=== PATIENT | male | born 1975 | race Hispanic/Latino ===

== ENCOUNTER 2017-02-03 02:30 | Emergency (ER) | payer OTHER ==
[2017-02-03 05:18] LABS: Basophils % (Auto) 0.3 % (0.0-1.8); Hematocrit 41.5 % (35.5-45.6); Hemoglobin 14.3 gm/dl (11.8-15.2); Mean Corpuscular HGB Conc 35 % (32-34); Mean Corpuscular Hemoglobin 30 pg (28-32); Mean Corpuscular Volume 87 fl (84-94); Platelet Count 249 K/mm3 (140-440); Red Blood Count 4.77 M/mm3 (3.65-5.03); Red Cell Distribution Width 13.1 % (13.2-15.2); White Blood Count 10.9 K/mm3 (4.5-11.0)
[2017-02-03 05:35] LABS: Alanine Aminotransferase 38 units/L (7-56); Albumin 4.8 g/dL (3.9-5); Alkaline Phosphatase 69 units/L (35-129); Anion Gap 18 mmol/L; BUN/Creatinine Ratio 15.71; Blood Urea Nitrogen 11 mg/dL (9-20); Calcium 9.5 mg/dL (8.4-10.2); Carbon Dioxide 26 mmol/L (22-30); Chloride 99.7 mmol/L (98-107); Glucose 113 mg/dL (75-100); Lipase 20 units/L (13-60); Potassium 4.9 mmol/L (3.6-5.0); Sodium 139 mmol/L (137-145); Total Protein 7.2 g/dL (6.3-8.2)
[2017-02-03 05:52] LABS: Bilirubin,Urine NEG (Negative); Blood,Urine MOD (Negative); Ketones,Urine NEG (Negative); Leukocyte Esterase,Urine NEG (Negative); Mucus,Urine FEW /HPF; Nitrite,Urine NEG (Negative); Protein,Urine <15 mg/dL mg/dL (Negative); Urobilinogen,Urine < 2.0 mg/dL (<2.0)
--- NOTE | 2017-02-03 10:06 | Emergency Department Report ---
Entered by TANNER MERCER, acting as scribe for BRIDGETTE KELLY PA. Chief Complaint: Abdominal Pain Stated Complaint: ABD PAIN THREE DAYS Time Seen by Provider: 02/03/17 09:54 - HPI History of Present Illness: Pt c/o generalized, 8/10, abdominal pain for 5 days. Describes pain as pressure and sharp in quality. Reports 5 emesis episodes last night. Notes history of similar abdominal pain. Denies diarrhea, fever, and chills. Notes that he still has his appendix and gallbladder is still in place. Denies EtOH consumption. Patient takes methadone for chronic back pain. Blood pressure is elevated at 174/115 - ROS Review of Systems: All system are negative unless stated in HPI above. - Exam Vital Signs: Vital Signs 02/03/17 04:16 Temperature 98.0 F Pulse Rate 54 L Respiratory 18 Rate Blood Pressure 174/115 O2 Sat by Pulse 99 Oximetry Physical Exam: General: well nourished, well developed, 41 year old male in no acute distress and nontoxic in appearance Abdomen: Soft normal bowel sounds in all quadrants. No guarding and no rebound. Periumbilical tenderness. Lungs: Clear to auscultation bilaterally, no rhonchi, wheezes, or rales. Normal work of breathing. No use of accessory muscles Cardiovascular: S1-S2, regular rate, regular rhythm. No murmurs. Blood pressure is elevated and asymptomatic. MSE screening note: Focused history and physical exam performed. Due to findings the following was ordered:see mdm See above ED Medical Decision Making - Lab Data Result diagrams: 02/03/17 04:44 02/03/17 04:44 Lab Results 02/03/17 02/03/17 02/03/17 Range/Units 04:44 04:44 05:27 WBC 10.9 (4.5-11.0) K/mm3 RBC 4.77 (3.65-5.03) M/mm3 Hgb 14.3 (11.8-15.2) gm/dl Hct 41.5 (35.5-45.6) % MCV 87 (84-94) fl MCH 30 (28-32) pg MCHC 35 H (32-34) % RDW 13.1 L (13.2-15.2) % Plt Count 249 (140-440) K/mm3 Lymph % (Auto) 10.5 L (13.4-35.0) % [place] % (Auto) 4.1 (0.0-7.3) % Eos % (Auto) 2.0 (0.0-4.3) % Baso % (Auto) 0.3 (0.0-1.8) % Lymph # 1.1 L (1.2-5.4) K/mm3 [place] # 0.4 (0.0-0.8) K/mm3 Eos # 0.2 (0.0-0.4) K/mm3 Baso # 0.0 (0.0-0.1) K/mm3 Seg Neutrophils % 83.1 H (40.0-70.0) % Seg Neutrophils # 9.1 H (1.8-7.7) K/mm3 Sodium 139 (137-145) mmol/L Potassium 4.9 (3.6-5.0) mmol/L Chloride 99.7 (98-107) mmol/L Carbon Dioxide 26 (22-30) mmol/L Anion Gap 18 mmol/L BUN 11 (9-20) mg/dL Creatinine 0.7 L (0.8-1.5) mg/dL Estimated GFR > 60 ml/min BUN/Creatinine Ratio 15.71 % Glucose 113 H (75-100) mg/dL Calcium 9.5 (8.4-10.2) mg/dL Total Bilirubin 0.30 (0.1-1.2) mg/dL AST 28 (5-40) units/L ALT 38 (7-56) units/L Alkaline Phosphatase 69 (35-129) units/L Total Protein 7.2 (6.3-8.2) g/dL Albumin 4.8 (3.9-5) g/dL Albumin/Globulin Ratio 2.0 % Lipase 20 (13-60) units/L Urine Color Yellow (Yellow) Urine Turbidity Clear (Clear) Urine pH 5.0 (5.0-7.0) Ur Specific [place] 1.018 (1.003-1.030) Urine Protein <15 mg/dl (Negative) mg/dL Urine Glucose (UA) Neg (Negative) mg/dL Urine Ketones Neg (Negative) mg/dL Urine Blood Mod (Negative) Urine Nitrite Neg (Negative) Urine Bilirubin Neg (Negative) Urine Urobilinogen < 2.0 (<2.0) mg/dL Ur Leukocyte Esterase Neg (Negative) Urine WBC (Auto) 1.0 (0.0-6.0) /HPF Urine RBC (Auto) 3.0 (0.0-6.0) /HPF Urine Mucus Few /HPF - Medical Decision Making MDM: Triage area Patient screened by provider in Patient Abdominal pain with episodic vomiting. Elevated blood pressure reading Plan: Abdominal protocol initiated and awaiting to go to [place] ED to be seen by Melanie Pressure elevated at 174/115: We'll give clonidine 0.2 mg ED Disposition for MSE Condition: Stable Referrals: PRIMARY CARE,MD [Primary Care Provider] - 3-5 Days This documentation as recorded by the RUSLAN moss JASMINE,accurately reflects the service I personally performed and the decisions made by ,BRIDGETTE KELLY PA.
[2017-02-03] MEDS ORDERED: CATAPRES ONE (10:18)
[2017-02-03] MEDS ORDERED: NACL 0.9% 1000 ML 1,000 ML IV ONE (11:50)
[2017-02-03] MEDS ORDERED: CARAFATE PO ONE (11:50)
[2017-02-03] MEDS ORDERED: PEPCID IV ONE (11:50)
[2017-02-03] MEDS ORDERED: BENTYL IM ONE (11:50)
[2017-02-03] MEDS ORDERED: ZOFRAN IV ONE (11:51)
[2017-02-03] MEDS ORDERED: NACL ONE (12:22)
[2017-02-03 13:41] VITALS: BP 118/68
--- NOTE | 2017-02-03 14:02 | Cat Scan Report ---
CT ABDOMEN AND PELVIS WITH CONTRAST INDICATION: Abdominal pain. COMPARISON: None similar at this institution. FINDINGS: Abdomen and pelvis CT performed following intravenous administration of 100 cc of Omnipaque 300. LUNG BASES: Right hemidiaphragm mildly elevated. ABDOMEN: Diffuse fatty hepatic infiltration with some pericholecystic sparing. Right hepatic lobe approximately 21 cm in midclavicular length. Few air containing noncalcified gallstones towards the fundus. Otherwise unremarkable liver, spleen, pancreas, adrenals, aorta, IVC and kidneys. No ascites or significant adenopathy. Nonopacified GI tract evaluation limited, though grossly nonobstructive. Normal appendix. Colonic stool, most along ascending colon/possible constipation. PELVIS: Mild rectosigmoid stool. Urinary bladder, seminal vesicles and prostate within normal limits. No free fluid or significant adenopathy. Mild lower thoracic spine degenerative changes, including few endplate irregularities/Schmorl's nodes. CONCLUSION: Cholelithiasis, fatty enlarged liver and few other incidental findings, as above. Please correlate. Thank you for the opportunity to participate in this patient's care.
--- NOTE | 2017-02-03 14:48 | Emergency Department Report ---
ED Abdominal Pain HPI - General Chief Complaint: Abdominal Pain Stated Complaint: ABD PAIN THREE DAYS Time Seen by Provider: 02/03/17 11:43 Source: patient, RN notes reviewed Mode of arrival: Ambulatory Limitations: No Limitations - History of Present Illness Initial Comments: This is a 41-year-old male. He is previously unknown to me. The patient has a past medical history of hypertension and has chronic pain for which she sees a pain specialist. The patient presents to the ER complaining of abdominal pain which has been present since Friday. The pain has been present for at least 5 days. The pain is achy and diffuse. It does not radiate anywhere. There is no chest pain or shortness of breath. There is no testicular pain. There is no dysuria. He reports a few episodes of nonbloody, nonbilious emesis. There is no leg pain. There is no leg swelling. No recent trips greater than 4 hours. No recent hospital admissions. The pain is all over, and increases with palpation and decreases with rest. The patient reports that his area of maximal pain intensity is in the periumbilical and epigastric region. MD Complaint: abdominal pain -: Gradual Location: diffuse Migration to: no migration Severity scale (0 -10): 0 Quality: cramping Consistency: intermittent Improves With: rest Worsens With: movement Associated Symptoms: nausea, vomiting - Related Data Previous Rx's Medication Instructions Recorded Last Taken Type Dicyclomine [Bentyl] 10 mg PO QID PRN #20 capsule 02/03/17 Unknown Rx Famotidine [Pepcid] 20 mg PO QDAY #30 tablet 02/03/17 Unknown Rx Ondansetron [Zofran Odt] 4 mg PO QID PRN #20 tab.rapdis 02/03/17 Unknown Rx Sucralfate [Carafate] 1 gm PO Q6HR #120 udc 02/03/17 Unknown Rx Allergies Allergy/AdvReac Type Severity Reaction Status Date / Time No Known Allergies Allergy Verified 02/03/17 10:20 ED Review of Systems ROS: Stated complaint: ABD PAIN THREE DAYS Other details as noted in HPI ED Past Medical Hx - Past Medical History Previous Medical History?: Yes Hx Hypertension: Yes Additional medical history: chronic back pain, takes methadone - Social History Smoking Status: Current Every Day Smoker - Medications Home Medications: Home Medications Medication Instructions Recorded Confirmed Last Taken Type Dicyclomine [Bentyl] 10 mg PO QID PRN #20 capsule 02/03/17 Unknown Rx Famotidine [Pepcid] 20 mg PO QDAY #30 tablet 02/03/17 Unknown Rx Ondansetron [Zofran Odt] 4 mg PO QID PRN #20 tab.rapdis 02/03/17 Unknown Rx Sucralfate [Carafate] 1 gm PO Q6HR #120 udc 02/03/17 Unknown Rx ED Physical Exam - General Limitations: No Limitations General appearance: alert, in no apparent distress - Head Head exam: Present: atraumatic, normocephalic - Eye Eye exam: Present: normal appearance, EOMI. Absent: nystagmus - ENT ENT exam: Present: normal exam, normal orophraynx, mucous membranes moist, normal external ear exam - Neck Neck exam: Present: normal inspection, full ROM. Absent: tenderness, meningismus - Respiratory Respiratory exam: Present: normal lung sounds bilaterally. Absent: respiratory distress, wheezes, rales, rhonchi, stridor, chest wall tenderness, accessory muscle use, decreased breath sounds, prolonged expiratory - Cardiovascular Cardiovascular Exam: Present: normal rhythm, bradycardia, normal heart sounds. Absent: systolic murmur, diastolic murmur, rubs, gallop - GI/Abdominal GI/Abdominal exam: Present: soft, normal bowel sounds, other (there is no right lower quadrant tenderness. There is no right upper quadrant tenderness). Absent: distended, tenderness, guarding, rebound, rigid, hyperactive bowel sounds, hypoactive bowel sounds, organomegaly, mass, bruit, pulsatile mass, hernia - Rectal Rectal exam: Present: deferred - Extremities Exam Extremities exam: Present: normal inspection, full ROM, normal capillary refill. Absent: pedal edema, joint swelling, calf tenderness - Back Exam Back exam: Present: normal inspection, full ROM. Absent: tenderness, CVA tenderness (R), CVA tenderness (L), muscle spasm, paraspinal tenderness, vertebral tenderness - Neurological Exam Neurological exam: Present: alert, oriented X3, normal gait, other (Extraocular movements intact. Tongue midline. No facial droop. Facial sensation intact to light touch in the V1, V2, V3 distribution bilaterally. 5 and 5 strength in 4 extremities.. Sensation is intact to light touch in 4 extremities.). Absent : motor sensory deficit - Psychiatric Psychiatric exam: Present: normal affect, normal mood - Skin Skin exam: Present: warm, dry, intact, normal color. Absent: rash ED Course Vital Signs 02/03/17 02/03/17 02/03/17 04:16 12:08 13:40 Temperature 98.0 F Pulse Rate 54 L 80 56 L Respiratory 18 18 18 Rate Blood Pressure 174/115 Blood Pressure 104/72 118/68 [Left] O2 Sat by Pulse 99 99 100 Oximetry ED Medical Decision Making - Lab Data Result diagrams: 02/03/17 04:44 02/03/17 04:44 Vital Signs 02/03/17 02/03/17 02/03/17 04:16 12:08 13:40 Temperature 98.0 F Pulse Rate 54 L 80 56 L Respiratory 18 18 18 Rate Blood Pressure 174/115 Blood Pressure 104/72 118/68 [Left] O2 Sat by Pulse 99 99 100 Oximetry Lab Results 02/03/17 02/03/17 02/03/17 Range/Units 04:44 04:44 05:27 WBC 10.9 (4.5-11.0) K/mm3 RBC 4.77 (3.65-5.03) M/mm3 Hgb 14.3 (11.8-15.2) gm/dl Hct 41.5 (35.5-45.6) % MCV 87 (84-94) fl MCH 30 (28-32) pg MCHC 35 H (32-34) % RDW 13.1 L (13.2-15.2) % Plt Count 249 (140-440) K/mm3 Lymph % (Auto) 10.5 L (13.4-35.0) % [place] % (Auto) 4.1 (0.0-7.3) % Eos % (Auto) 2.0 (0.0-4.3) % Baso % (Auto) 0.3 (0.0-1.8) % Lymph # 1.1 L (1.2-5.4) K/mm3 [place] # 0.4 (0.0-0.8) K/mm3 Eos # 0.2 (0.0-0.4) K/mm3 Baso # 0.0 (0.0-0.1) K/mm3 Seg Neutrophils % 83.1 H (40.0-70.0) % Seg Neutrophils # 9.1 H (1.8-7.7) K/mm3 Sodium 139 (137-145) mmol/L Potassium 4.9 (3.6-5.0) mmol/L Chloride 99.7 (98-107) mmol/L Carbon Dioxide 26 (22-30) mmol/L Anion Gap 18 mmol/L BUN 11 (9-20) mg/dL Creatinine 0.7 L (0.8-1.5) mg/dL Estimated GFR > 60 ml/min BUN/Creatinine Ratio 15.71 % Glucose 113 H (75-100) mg/dL Calcium 9.5 (8.4-10.2) mg/dL Total Bilirubin 0.30 (0.1-1.2) mg/dL AST 28 (5-40) units/L ALT 38 (7-56) units/L Alkaline Phosphatase 69 (35-129) units/L Total Protein 7.2 (6.3-8.2) g/dL Albumin 4.8 (3.9-5) g/dL Albumin/Globulin Ratio 2.0 % Lipase 20 (13-60) units/L Urine Color Yellow (Yellow) Urine Turbidity Clear (Clear) Urine pH 5.0 (5.0-7.0) Ur Specific [place] 1.018 (1.003-1.030) Urine Protein <15 mg/dl (Negative) mg/dL Urine Glucose (UA) Neg (Negative) mg/dL Urine Ketones Neg (Negative) mg/dL Urine Blood Mod (Negative) Urine Nitrite Neg (Negative) Urine Bilirubin Neg (Negative) Urine Urobilinogen < 2.0 (<2.0) mg/dL Ur Leukocyte Esterase Neg (Negative) Urine WBC (Auto) 1.0 (0.0-6.0) /HPF Urine RBC (Auto) 3.0 (0.0-6.0) /HPF Urine Mucus Few /HPF - EKG Data -: EKG Interpreted by Me Rate: bradycardia - EKG Data When compared to previous EKG there are: previous EKG unavailable 02/03/17 14:45 sinus bradycardia, 54 bpm, normal intervals, normal axis, early repolarization, not morphologically consistent stomach, there is no prior EKG available for comparison - Radiology Data Radiology results: report reviewed, image reviewed CT scan of the abdomen and pelvis with IV contrast demonstrates no acute findings. Incidental cholelithiasis without evidence of cholecystitis is noted - Medical Decision Making Differential diagnosis: Constipation, thrombosis, biliary colic, appendicitis, gastritis, pancreatitis, renal colic Assessment and plan: 41-year-old male with 5 days of nonspecific abdominal pain. He is afebrile, with reassuring vital signs, has no pulmonary embolus or DVT risk factors, he is low risk by well's criteria, he is low risk by BRIANNA score, he is low risk by heart score, has an unremarkable EKG, and he is perc negative. He felt improved after nonnarcotic conservative medical management. A CT scan is negative for acute surgical disease or pathology. He felt improved after conservative therapy. He will be discharged. Return precautions are reviewed. Critical care attestation.: If time is entered above; I have spent that time in minutes in the direct care of this critically ill patient, excluding procedure time. ED Disposition Clinical Impression: Abdominal pain Disposition: DC-01 TO HOME OR SELFCARE Is pt being admited?: No Does the pt Need Aspirin: No Condition: Good Instructions: Abdominal Pain (ED) Additional Instructions: Avoid consumption of heavy and spicy foods. Take the pain medication, nausea medication as directed. Follow up with a primary care doctor, or gasoline engine inspector within the next week-10 days. Follow-up with a general surgeon if you develop recurrent right upper quadrant pain. Return to the ER right away with new pain, worsened pain, migration pain, fevers , chills, confusion, intractable nausea or vomiting, inability to tolerate liquid feeds. Referrals: PRIMARY CARE, [Primary Care Provider] - 3-5 Days COCO MACIEL MD [Staff Physician] - 3-5 Days NANCY ARCHULETA MD [Staff Physician] - 3-5 Days
== END 2017-02-03 14:59 | disposition home or self-care (01) ==
LOC: ED 02:30
DX: R10.9 Unspecified abdominal pain (principal); I10 Essential (primary) hypertension; F17.200 Nicotine dependence, unspecified, uncomplicated
CPT/HCPCS: 36415; 74177; 80053; 81001; 83690; 85025; 93005; 93010; 96361; 96372; 96374; 96375; 99284; J0500; J2405; J7030; Q9967